=== PATIENT | female | born 1960 | race Caucasian/White ===

== ENCOUNTER 2022-04-02 09:24 | Inpatient (IN) | payer BC ==
[2022-04-02] MEDS ORDERED: NITROGLYCERIN OINT 1 INCH/GM PACKET TOPICAL STA (09:43)
[2022-04-02] MEDS ORDERED: ASPIRIN 81 MG PO STA (09:43)
--- NOTE | 2022-04-02 09:51 | ED ---
General Adult HPI - General Chief complaint: Chest Pain Stated complaint: Chest Pain Time Seen by Provider: 04/02/22 09:25 Source: patient, RN notes reviewed, old records reviewed Mode of arrival: ambulatory Limitations: no limitations - History of Present Illness Initial comments: This is a 61-year-old female who presents to the emergency department co mplaining of chest pain. Patient states started a 1 week ago and the pain is now radiating to her jaw. Patient states anytime she exerts himself he gets the pain with radiation. Patient states as soon she rests the pain subsides over 5- 10 minutes. Patient states she is not short of breath but she did have a diaphoretic episode earlier today. Patient states she is a smoker for 50 years she has a positive family history of heart disease and she does have high cholesterol. Patient denies any lightheadedness or dizziness. Patient denies any headache. Patient denies numbness or weakness. Patient denies any abdominal pain patient denies nausea vomiting diarrhea. - Related Data Home Medications Medication Instructions Recorded Confirmed Esomeprazole Magnesium [NexIUM 20 mg PO DAILY PRN 04/02/22 04/02/22 24Hr] Multivitamins, Thera [Multivitamin 1 tab PO DAILY 04/02/22 04/02/22 (formulary)] Vit C/E/Zn/Coppr/Lutein/Zeaxan 1 cap PO DAILY 04/02/22 04/02/22 [Preservision Areds 2 Softgel] Allergies Allergy/AdvReac Type Severity Reaction Status Date / Time codeine AdvReac Swelling Verified 04/02/22 10:12 Pork/Porcine Containing AdvReac Unknown Verified 04/02/22 10:14 Products [Pork] Review of Systems ROS Statement: Those systems with pertinent positive or pertinent negative responses have been documented in the HPI. ROS Other: All systems not noted in ROS Statement are negative. Past Medical History Past Medical History: Hyperlipidemia Past Surgical History: Hysterectomy Smoking Status: Current every day smoker Past Alcohol Use History: None Reported Past Drug Use History: None Reported General Exam - General Exam Comments Initial Comments: GENERAL: Patient is well-developed and well-nourished. Patient is nontoxic and well- hydrated and is in mild distress. ENT: Neck is soft and supple. No significant lymphadenopathy is noted. Oropharynx is clear. Moist mucous membranes. Neck has full range of motion without eliciting any pain. EYES: The sclera were anicteric and conjunctiva were pink and moist. Extraocular movements were intact and pupils were equal round and reactive to light. Eyelids were unremarkable. PULMONARY: Unlabored respirations. Good breath sounds bilaterally. No audible rales rhonchi or wheezing was noted. CARDIOVASCULAR: There is a regular rate and rhythm without any murmurs gallops or rubs. ABDOMEN: Soft and nontender with normal bowel sounds. SKIN: Skin is clear with no lesions or rashes and otherwise unremarkable. NEUROLOGIC: Patient is alert and oriented x3. Cranial nerves II through XII are grossly intact. Motor and sensory are also intact. Normal speech, volume and content. Symmetrical smile. MUSCULOSKELETAL: Normal extremities with adequate strength and full range of motion. LYMPHATICS: No significant lymphadenopathy is noted PSYCHIATRIC: Normal psychiatric evaluation. Limitations: no limitations Course Vital Signs 04/02/22 04/02/22 09:24 10:15 Temperature 97.9 F Pulse Rate 85 79 Respiratory 18 16 Rate Blood Pressure 148/81 140/70 O2 Sat by Pulse 87 L 98 Oximetry Medical Decision Making - Medical Decision Making EKG shows sinus rhythm at 74 bpm WI interval 143 QRS is 86 QT interval 362 QTC is 389 patient's EKG shows no ST segment elevation there is some slight depress ion in the inferior leads II, III, and F aVF. There is also some very slight depression in leads V5 and V6 Patient's chest x-ray shows no acute abnormality. I spoke with some physicians agreed to admit the patient admitted the patient wrote admitting orders - Lab Data Result diagrams: 04/02/22 09:56 04/02/22 09:56 Lab Results 04/02/22 04/02/22 04/02/22 Range/Units 09:56 09:56 09:56 WBC 6.6 (3.8-10.6) k/uL RBC 4.58 (3.80-5.40) m/uL Hgb 15.0 (11.4-16.0) gm/dL Hct 43.9 (34.0-46.0) % MCV 95.8 (80.0-100.0) fL MCH 32.7 (25.0-35.0) pg MCHC 34.1 (31.0-37.0) g/dL RDW 12.5 (11.5-15.5) % Plt Count 268 (150-450) k/uL MPV 8.1 Neutrophils % 57 % Lymphocytes % 33 % Monocytes % 5 % Eosinophils % 1 % Basophils % 0 % Neutrophils # 3.8 (1.3-7.7) k/uL Lymphocytes # 2.2 (1.0-4.8) k/uL Monocytes # 0.3 (0-1.0) k/uL Eosinophils # 0.1 (0-0.7) k/uL Basophils # 0.0 (0-0.2) k/uL PT 9.9 (9.0-12.0) sec INR 0.9 (<1.2) APTT 23.9 (22.0-30.0) sec Sodium 137 (137-145) mmol/L Potassium 4.0 (3.5-5.1) mmol/L Chloride 104 (98-107) mmol/L Carbon Dioxide 26 (22-30) mmol/L Anion Gap 7 mmol/L BUN 10 (7-17) mg/dL Creatinine 0.61 (0.52-1.04) mg/dL Est GFR (CKD-EPI)AfAm >90 (>60 ml/min/1.73 sqM) Est GFR (CKD-EPI)NonAf >90 (>60 ml/min/1.73 sqM) Glucose 107 H (74-99) mg/dL Calcium 9.9 (8.4-10.2) mg/dL Magnesium 1.9 (1.6-2.3) mg/dL Total Bilirubin 0.4 (0.2-1.3) mg/dL AST 25 (14-36) U/L ALT 19 (4-34) U/L Alkaline Phosphatase 77 (38-126) U/L Troponin I (0.000-0.034) ng/mL Total Protein 7.7 (6.3-8.2) g/dL Albumin 4.7 (3.5-5.0) g/dL 04/02/22 Range/Units 09:56 WBC (3.8-10.6) k/uL RBC (3.80-5.40) m/uL Hgb (11.4-16.0) gm/dL Hct (34.0-46.0) % MCV (80.0-100.0) fL MCH (25.0-35.0) pg MCHC (31.0-37.0) g/dL RDW (11.5-15.5) % Plt Count (150-450) k/uL MPV Neutrophils % % Lymphocytes % % Monocytes % % Eosinophils % % Basophils % % Neutrophils # (1.3-7.7) k/uL Lymphocytes # (1.0-4.8) k/uL Monocytes # (0-1.0) k/uL Eosinophils # (0-0.7) k/uL Basophils # (0-0.2) k/uL PT (9.0-12.0) sec INR (<1.2) APTT (22.0-30.0) sec Sodium (137-145) mmol/L Potassium (3.5-5.1) mmol/L Chloride (98-107) mmol/L Carbon Dioxide (22-30) mmol/L Anion Gap mmol/L BUN (7-17) mg/dL Creatinine (0.52-1.04) mg/dL Est GFR (CKD-EPI)AfAm (>60 ml/min/1.73 sqM) Est GFR (CKD-EPI)NonAf (>60 ml/min/1.73 sqM) Glucose (74-99) mg/dL Calcium (8.4-10.2) mg/dL Magnesium (1.6-2.3) mg/dL Total Bilirubin (0.2-1.3) mg/dL AST (14-36) U/L ALT (4-34) U/L Alkaline Phosphatase (38-126) U/L Troponin I 0.013 (0.000-0.034) ng/mL Total Protein (6.3-8.2) g/dL Albumin (3.5-5.0) g/dL Disposition Clinical Impression: Chest pain Disposition: ADMITTED IP TO THIS [facility] Referrals: None,Stated [Primary Care Provider] - 1-2 days Time of Disposition: 11:02
[2022-04-02 10:14] LABS: Basophils % (A) 0 %; Eosinophils # (A) 0.1 k/uL (0-0.7); Eosinophils % (A) 1 %; HCT 43.9 % (34.0-46.0); Lymphocytes # (A) 2.2 k/uL (1.0-4.8); Lymphocytes % (A) 33 %; MCH 32.7 pg (25.0-35.0); MCHC 34.1 g/dL (31.0-37.0); MCV 95.8 fL (80.0-100.0); Mean Platelet Volume 8.1; Monocytes # (A) 0.3 k/uL (0-1.0); Monocytes % (A) 5 %; Neutrophils # (A) 3.8 k/uL (1.3-7.7); Neutrophils % (A) 57 %; Platelet Count 268 k/uL (150-450); RBC 4.58 m/uL (3.80-5.40); RDW 12.5 % (11.5-15.5); WBC 6.6 k/uL (3.8-10.6)
[2022-04-02 10:38] LABS: INR 0.9 (<1.2); Partial Thromboplastin Time 23.9 sec (22.0-30.0); Prothrombin Time 9.9 sec (9.0-12.0)
--- NOTE | 2022-04-02 10:45 | XR ---
EXAMINATION TYPE: XR chest 2V DATE OF EXAM: 04/02/2022 COMPARISON: NONE HISTORY: Chest pain TECHNIQUE: Frontal and lateral views of the chest are obtained. FINDINGS: There is no focal air space opacity, pleural effusion, or pneumothorax seen. The cardiac silhouette size is within normal limits. There are overlying leads. The aorta is dense. The osseous structures are intact. IMPRESSION: No acute cardiopulmonary process.
[2022-04-02 10:46] LABS: ALT 19 U/L (4-34); AST 25 U/L (14-36); African American GFR (CKD) >90 (>60 ml/min/1.73 sqM); Albumin 4.7 g/dL (3.5-5.0); Alkaline Phosphatase 77 U/L (38-126); Anion Gap 7 mmol/L; Blood Urea Nitrogen 10 mg/dL (7-17); Calcium 9.9 mg/dL (8.4-10.2); Carbon Dioxide 26 mmol/L (22-30); Chloride 104 mmol/L (98-107); Glucose 107 mg/dL (74-99); Magnesium 1.9 mg/dL (1.6-2.3); Non-African American GFR(CKD) >90 (>60 ml/min/1.73 sqM); Sodium 137 mmol/L (137-145); Total Bilirubin 0.4 mg/dL (0.2-1.3); Total Protein 7.7 g/dL (6.3-8.2)
[2022-04-02] MEDS ORDERED: NITROGLYCERIN SL TABS 0.4 MG TAB SUBLINGUAL PRN ×4 (11:03→19:21)
[2022-04-02] MEDS ORDERED: ACETAMINOPHEN TAB 500 MG TAB PO STA (11:33)
[2022-04-02] MEDS: NITROGLYCERIN OINT 1 INCH/GM PACKET TOPICAL SCH ×2 (11:38→17:07)
[2022-04-02] MEDS ORDERED: PANTOPRAZOLE 40 MG TABLET PO PRN (12:56)
[2022-04-02] MEDS ORDERED: NALOXONE 0.4 MG/ML 1 ML VIAL IV PRN (12:56)
--- NOTE | 2022-04-02 13:03 | P.HPIM ---
History of Present Illness H&P Date: 04/02/22 Chief Complaint: chest pain 61-year-old female who presents to the emergency department complaining of chest pain. Patient states started a 1 week ago and the pain is now radiating to her jaw. Patient states anytime she exerts herself she gets the pain. It goes away with rest. This am it was 8/10 in severity and now it is about 2/10. Patient states she is not short of breath but she did feel diaphoretic earlier today. Patient states she is a smoker for 50 years of 1 PPD she has a positive family history of CAD. Mother had bypass in her 50s and father had it in his 60s. She has hx of high cholesterol and did not tolerate statins in the past, states it causes her to have low BP. No lightheadedness or dizziness. No abdominal pain, nausea vomiting diarrhea. Trops and EKG in the ER were both negative for AMI, she was admitted for further evaluation by cardiology. Past Medical History Past Medical History: Hyperlipidemia Past Surgical History: Hysterectomy Smoking Status: Current every day smoker Past Alcohol Use History: None Reported Past Drug Use History: None Reported Medications and Allergies Home Medications Medication Instructions Recorded Confirmed Type Esomeprazole Magnesium [NexIUM 20 mg PO DAILY PRN 04/02/22 04/02/22 History 24Hr] Multivitamins, Thera [Multivitamin 1 tab PO DAILY 04/02/22 04/02/22 History (formulary)] Vit C/E/Zn/Coppr/Lutein/Zeaxan 1 cap PO DAILY 04/02/22 04/02/22 History [Preservision Areds 2 Softgel] Allergies Allergy/AdvReac Type Severity Reaction Status Date / Time codeine AdvReac Swelling Verified 04/02/22 10:12 Pork/Porcine Containing AdvReac Unknown Verified 04/02/22 10:14 Products [Pork] Physical Exam Vitals: Vital Signs Temp Pulse Resp BP Pulse Ox 04/02/22 12:04 81 16 134/80 94 L 04/02/22 10:15 79 16 140/70 98 04/02/22 09:24 97.9 F 85 18 148/81 87 L Intake and Output 04/01/22 04/02/22 04/02/22 22:59 06:59 14:59 Other: Weight 63.503 kg Constitutional: No acute distress, conversant, pleasant Eyes:Anicteric sclerae, moist conjunctiva, no lid-lag, PERRLA, ENMT: Oropharynx clear, no erythema, exudates Neck: Supple, FROM, no masses, or JVD, No carotid bruits, No thyromegaly Lungs: Clear to auscultation, Clear to percussion, Normal respiratory effort, no accessory muscle use Cardiovascular: Heart regular in rate and rhythm, No murmurs, gallops, or rubs, No peripheral edema Abdominal: Soft, Nontender, no guarding, rebound or rigidity, Normoactive bowel sounds, No hepatomegaly, No splenomegaly, No palpable mass Skin: Normal temperature, tone, texture, turgor, no induration, No subcutaneous nodules, No rash, lesions, No ulcers Extremities: No digital cyanosis, No clubbing, Pedal pulses intact and symmetrical, Radial pulses intact and symmetrical, No calf tenderness Psychiatric: Alert and oriented to person, place and time, appropriate affect, intact judgement Neuro: Muscles Strength 5/5 in all 4 extremities, Sensation to light touch grossly present throughout, Cranial nerves II-XII grossly intact, no focal s ensory deficits Results CBC & Chem 7: 04/02/22 09:56 04/02/22 09:56 Labs: Abnormal Lab Results - Last 24 Hours (Table) 04/02/22 Range/Units 09:56 Glucose 107 H (74-99) mg/dL Assessment and Plan Plan: Acute chest pain Rule out coronary artery disease Telemetry Cardiology consult Cycle troponins Hyperlipidemia Check lipid panel Admit to observation
[2022-04-02] MEDS ORDERED: ALPRAZolam 0.25 MG TAB PO PRN (15:11)
[2022-04-02] MEDS ORDERED: ASPIRIN 325 MG TAB PO STA (15:11)
[2022-04-02] MEDS ORDERED: ATORVASTATIN 80 MG TAB PO STA (15:11)
[2022-04-02] MEDS ORDERED: ALPRAZolam 0.5 MG TAB PO PRN (15:11)
--- NOTE | 2022-04-02 15:18 | P.CRDCN ---
History of Present Illness Consult date: 04/02/22 History of present illness: HISTORY OF PRESENT ILLNESS: This is a 61-year-old female with a past medical history significant for hyperlipidemia (not taking statin secondary to causing hypotension per patient) and nicotine dependence. Patient does not follow with a kit assembler. We have been asked to see the patient in consultation for chest pain. Patient examined at the bedside. Patient states over the past few months she has been having dis comfort in between her shoulder blades. She states she did not think much of this until the past week when she began having chest pain and jaw pain. She states the pain would come with exertion. She states this morning she was getting ready for work when she began having severe chest pain that radiated up to her jaw. She reports feeling diaphoretic and short of breath. She states she called in to work and had her daughter bring her to the hospital for further evaluation. At the time of my examination, the patient denies having any chest pain or pressure. She does report a family history of premature coronary artery disease and states both her mother and her father had heart attacks in their 50s. * EKG reveals sinus mechanism with ST depression inferiorly. Patient also has mild ST depression in V4V6. * Chest xray negative for acute process * Laboratory data: WBC 6.6. Hemoglobin 15.0. Platelet count 268. Sodium 137. Potassium 4.0. BUN 10. Creatinine 0.61. Troponin 0.013. 0.066. * Current home cardiac medications include none REVIEW OF SYSTEMS: At the time of my exam: CONSTITUTIONAL: Denies fever or chills. HEENT: Denies blurred vision, vision changes, or eye pain. Denies hemoptysis CARDIOVASCULAR: Denies chest pain. Denies orthopnea. Denies PND. Denies palpitations RESPIRATORY: Denies shortness of breath. GASTROINTESTINAL: Denies abdominal pain. Denies nausea or vomiting. HEMATOLOGIC: Denies bleeding disorders. GENITOURINARY: Denies any blood in urine. SKIN: Denies pruitis. Denies rash. PHYSICAL EXAM: VITAL SIGNS: Reviewed. GENERAL: Well-developed in no acute distress. HEENT: Head is normocephalic. Pupils are equal, round. Sclerae anicteric. Mucous membranes of the mouth are moist. Neck supple. No JVD or thyromegaly LUNGS: Respirations even and unlabored. Lungs essentially clear to auscultation bilaterally. HEART: Regular rate and rhythm. S1 and S2 heard. ABDOMEN: Soft. Nondistended. Nontender. EXTREMITIES: Normal range of motion. No clubbing or cyanosis. Peripheral pulses intact. No lower extremity edema NEUROLOGIC: Awake and alert. Oriented x 3. ASSESSMENT: Non-STEMI Hyperlipidemia, intolerant to statins in the past, causing hypotension Nicotine dependence Family history of premature coronary artery disease PLAN: Obtain 2D echo to assess cardiac structure and function Begin aspirin 81 mg daily and metoprolol 25 mg twice a day Patient reports having hypotension in the past with statin therapy. Patient is willing to attempt statin therapy again. Will begin atorvastatin 80 mg at at bedtime. If hypotension develops, will adjust medications Patient undergo cardiac catheterization this afternoon with Dr. Nicole No IV heparin at this time as patient has a pork ALLERGY. Will hold off on therapeutic Lovenox as this should be held 12 hours prior to cardiac catheterization. Further recommendations pending patient's course Nurse practitioner note has been reviewed by physician. Signing provider agrees with the documented findings, assessment, and plan of care. Past Medical History Past Medical History: Hyperlipidemia Past Surgical History: Hysterectomy Smoking Status: Current every day smoker Past Alcohol Use History: None Reported Past Drug Use History: None Reported Medications and Allergies Home Medications Medication Instructions Recorded Confirmed Type Esomeprazole Magnesium [NexIUM 20 mg PO DAILY PRN 04/02/22 04/02/22 History 24Hr] Multivitamins, Thera [Multivitamin 1 tab PO DAILY 04/02/22 04/02/22 History (formulary)] Vit C/E/Zn/Coppr/Lutein/Zeaxan 1 cap PO DAILY 04/02/22 04/02/22 History [Preservision Areds 2 Softgel] Allergies Allergy/AdvReac Type Severity Reaction Status Date / Time codeine AdvReac Mild Swelling Verified 04/02/22 14:36 Pork/Porcine Containing AdvReac Swelling Verified 04/02/22 14:36 Products [Pork] Physical Exam Vitals: Vital Signs Temp Pulse Resp BP Pulse Ox 04/02/22 14:25 80 16 118/69 95 04/02/22 13:54 67 15 124/67 100 04/02/22 12:04 81 16 134/80 94 L 04/02/22 10:15 79 16 140/70 98 04/02/22 09:24 97.9 F 85 18 148/81 87 L Intake and Output 04/02/22 04/02/22 04/02/22 06:59 14:59 22:59 Other: Weight 63.503 kg Results 04/02/22 09:56 04/02/22 09:56 Cardiac Enzymes 04/02/22 04/02/22 04/02/22 Range/Units 09:56 09:56 12:51 AST 25 (14-36) U/L Troponin I 0.013 0.066 H* (0.000-0.034) ng/mL Coagulation 04/02/22 Range/Units 09:56 PT 9.9 (9.0-12.0) sec APTT 23.9 (22.0-30.0) sec CBC 04/02/22 Range/Units 09:56 WBC 6.6 (3.8-10.6) k/uL RBC 4.58 (3.80-5.40) m/uL Hgb 15.0 (11.4-16.0) gm/dL Hct 43.9 (34.0-46.0) % Plt Count 268 (150-450) k/uL Comprehensive Metabolic Panel 04/02/22 Range/Units 09:56 Sodium 137 (137-145) mmol/L Potassium 4.0 (3.5-5.1) mmol/L Chloride 104 (98-107) mmol/L Carbon Dioxide 26 (22-30) mmol/L BUN 10 (7-17) mg/dL Creatinine 0.61 (0.52-1.04) mg/dL Glucose 107 H (74-99) mg/dL Calcium 9.9 (8.4-10.2) mg/dL AST 25 (14-36) U/L ALT 19 (4-34) U/L Alkaline Phosphatase 77 (38-126) U/L Total Protein 7.7 (6.3-8.2) g/dL Albumin 4.7 (3.5-5.0) g/dL Current Medications Generic Name Dose Route Start Last Admin Trade Name Freq PRN Reason Stop Dose Admin Aspirin 325 mg 04/03/22 09:00 Aspirin 325 Mg Tab PO DAILY [facility] Multivitamins 1 each 04/03/22 09:00 Multivitamins, Thera 1 Each Tab PO DAILY GINNA Naloxone HCl 0.2 mg 04/02/22 12:56 Naloxone 0.4 Mg/Ml 1 Ml Vial IV Q2M PRN Opioid Reversal Nitroglycerin 0.4 mg 04/02/22 11:03 Nitroglycerin Sl Tabs 0.4 Mg Tab SUBLINGUAL Q5M PRN Chest Pain Nitroglycerin 1 inch 04/02/22 12:00 04/02/22 11:38 Nitroglycerin Oint 1 Inch/Gm Packet TOPICAL Not Given Q6HR GINNA Pantoprazole Sodium 40 mg 04/02/22 12:56 Pantoprazole 40 Mg Tablet PO DAILY PRN Heartburn Intake and Output 04/02/22 04/02/22 04/02/22 06:59 14:59 22:59 Other: Weight 63.503 kg Patient Weight 04/03/22 06:59 Weight 63.503 kg 04/02/22 09:56 04/02/22 09:56
[2022-04-02] MEDS: SODIUM CHLORIDE 0.9% 1,000 ML in EMPTY BAG 1 BAG IV SCH (15:40)
[2022-04-02] MEDS ORDERED: SODIUM CITRATE 250 ML MISCELLANE STA (17:22)
[2022-04-02] MEDS ORDERED: IV FLUID CONTINUATION 1,000 ML IV ONE (17:42)
[2022-04-02] MEDS ORDERED: MIDAZOLAM 2 MG/2 ML VIAL IV ONE ×2 (17:46→17:54)
[2022-04-02] MEDS ORDERED: HEPARIN SODIUM 1,000 UN/ML (10ML VL) ONE (17:47)
[2022-04-02] MEDS ORDERED: LIDOCAINE 1% INJ 10MG/ML (20 ML MDV) SQ ONE (17:48)
[2022-04-02] MEDS ORDERED: VERAPAMIL 2.5 MG/ML 2 ML AMP ONE (17:48)
[2022-04-02] MEDS ORDERED: VERAPAMIL SYRINGE (5 MG/10 ML) INTRAARTER ONE (17:49)
[2022-04-02] MEDS ORDERED: BIVALIRUDIN 250 MG in SODIUM CHLORIDE 0.9% 50 ML IV ONE ×4 (17:55)
[2022-04-02] MEDS ORDERED: BIVALIRUDIN BOLUS 250 MG/50 ML IV ONE ×2 (18:10→18:15)
[2022-04-02] MEDS ORDERED: PRASUGREL 10 MG TAB ONE ×2 (18:11)
[2022-04-02] MEDS ORDERED: PRASUGREL 10 MG TAB PO ONE (18:23)
[2022-04-02] MEDS ORDERED: IOPAMIDOL-370 125ML BTL INJ ONE (18:54)
[2022-04-02] MEDS ORDERED: AMIODARONE 50 MG/ML 3 ML VIAL IV ONE (19:11)
[2022-04-02] MEDS ORDERED: DEXTROSE 5% IN WATER 100 ML BAG IV ONE (19:11)
[2022-04-02] MEDS ORDERED: IOPAMIDOL-370 100ML BTL INJ ONE (19:14)
[2022-04-02] MEDS ORDERED: ATROPINE SULFATE 0.1 MG/ML 10ML SYRINGE IV PRN (19:21)
[2022-04-02] MEDS ORDERED: RX INFO: IV CONTRAST WAS GIVEN 1 EACH MISC MISCELLANE PRN (19:21)
[2022-04-02] MEDS ORDERED: ZOLPIDEM 5 MG TAB PO PRN (19:21)
[2022-04-02] MEDS ORDERED: MAG HYDROX/AL HYDROX/SIMETH 30 ML CUP PO PRN (19:21)
[2022-04-02] MEDS ORDERED: SODIUM CHLORIDE 0.9% 1,000 ML in EMPTY BAG 1 BAG IV SCH (19:30)
--- NOTE | 2022-04-02 19:32 | P.PCN ---
Date of Procedure: 04/02/22 Operative Findings: CARDIAC CATHETERIZATION AND PERCUTANEOUS CORONARY INTERVENTION PERFORMING PHYSICIAN: Suhail Nicole MD, RPVI PROCEDURE PERFORMED: 1. Selective right and left coronary angiogram 2. Left heart catheterization 3. Successful stenting of distal and mid RCA using 2.5 x 38 mm and 3.5 x 38 mm Xience LEAH which with an excellent angiographic results 4. Successful stenting of the second obtuse marginal branch using 2.5 x 38 mm Xience LEAH with an excellent angiographic results 5. Intravascular ultrasound of the right coronary artery 6. Selective right common femoral artery in March INDICATION: This is a 61-year-old female patient who presented to the hospital with a chest discomfort and ruled in for acute coronary syndrome. COMPLICATION: Cardiac arrest was polymorphic VT. APPROACH: Right radial artery and right common femoral artery LEVEL OF SEDATION: Moderate with the sedation time off 85 minutes PROCEDURE DESCRIPTION: After obtaining an informed consent the patient was brought to the cardiac parking lot laborer. The right radial artery was cannulated using micropuncture technique, the micropuncture wire passed easily then I placed a 6-Norwegian sheath. I gave the patient 2 mg of verapamil intra-arterial. Selective right and left coronary angiogram performed using JR4 and JL 3.5 catheters. Left heart catheterization was performed using the JR4 catheter which cross aortic valve then I did pulled back across the valve. Attempting advancing guiding catheter to do PCI of the RCA from right radial was unsuccessful because of severe spasm and pain in the right elbow and for that reason we aborted the right radial approach and we went from the right groin. After accessing the right common femoral artery I did intervene on the RCA and LCx. SELECTIVE CORONARY ANGIOGRAM: The right coronary artery: Is a large caliber vessel and a dominant vessel. The RCA is diffusely diseased up to about 90-95% in the proximal and mid and distal portions. Distally bifurcates into PDA and PLV branches. Left main: Has mild disease in the ostium appears to be in the range of 20% only. The left circumflex: Is a large caliber vessel nondominant vessel. The proximal left circumflex a ppeared to have mild disease only and gives rises into a large OM branch which work as a ramus intermedius and appeared to be angiographically normal. Second OM is a large caliber vessel with diffuse disease up to about 100% in the midportion. The left anterior descending artery: Is a large caliber vessel. The LAD has mild disease in the proximal and midportion. Gives rise into a large diagonal branch which has mild disease only. HEMODYNAMICS: The LVEDP was about 5-10 mmHg with mild gradient across aortic valve PCI OF THE RCA and LCx: Anticoagulation was initiated using Angiomax. The patient is ALLERGIC to heparin. Using JR4 guiding catheter the RCA was engaged. I did wire it using a whisper wire. Balloon angioplasty was performed using 2.5 x 20 mm balloon. After that and in the distal RCA deployed 2.5 x 38 mm stent and in the mid RCA deployed 3.5 x 38 mm stents. The stent were overlapped about one to 2 mm. After that the following angiogram showed good angiographic results but the area of overlap was a bit concerning and for that reason I did intravascular ultrasound which showed good opposition of the stent. No concerning areas seen. Re: The left circumflex intervention I did engage the left main using JL 4 guiding catheter. Wiring the left circumflex/OM 2 was performed using a whisper wire. Attempting doing balloon angioplasty using 2.0 mm balloon and subsequently 1.5 mm balloon was unsuccessful. Finally I was able to advance 1 mm balloon were I did PTCA ballooning of the OM 2. After that I did PTCA below- knee using 2.0 mm balloon. Finally I was able to advance 2.5 x 38 mm stent where the stent was positioned again under fluoroscopy guidance and deployed under its nominal pressure. Please note that during the procedure and everything the patient was given intracoronary nitroglycerin she went into V. fib/polymorphic VT. We gave the patient a total of 3 shocks. She came back to normal sinus mechanism. I did engage the left main coronary artery again and final angiogram was performed to show adequate angiographic results and the procedure was completed without any c ommon CONCLUSION: #1 critical disease involving the RCA in the distal and midportion. I performed successful stenting of both the distal and midportion with an excellent angiographic results #2 critical disease involving OM 2 of the LCx. I did perform successful stenting of OM 2 with an excellent angiographic results #3 mild disease involving the left anterior descending artery #4 mild disease involving the left main coronary artery #5 normal left-sided filling pressure #6 ALLERGY to nitroglycerin intracoronary with multiple episodes of polymorphic VT/cardiac arrest. The patient associated with shock. POSTPROCEDURE MANAGEMENT: #1 dual antiplatelet therapy using Effient and aspirin for at least 12 months #2 aggressive cholesterol control #3 follow-up with the patient
[2022-04-02 20:25] LABS: Glucose,Whole Blood 131 mg/dL (70-110)
[2022-04-02] MEDS: ATORVASTATIN 80 MG TAB PO SCH (23:37)
[2022-04-03] MEDS ORDERED: NITROGLYCERIN OINT 1 INCH/GM PACKET TOPICAL SCH
[2022-04-03] MEDS: METOPROLOL TARTRATE 25 MG TAB PO SCH ×3 (00:25→20:55)
[2022-04-03] MEDS: SODIUM CHLORIDE 0.9% 1,000 ML in EMPTY BAG 1 BAG IV SCH (00:26)
[2022-04-03] MEDS: PRASUGREL 10 MG TAB PO SCH (08:09)
[2022-04-03] MEDS: MULTIVITAMINS, THERA 1 EACH TAB PO SCH (08:10)
[2022-04-03] MEDS: ASPIRIN 81 MG PO SCH (08:10)
[2022-04-03 08:33] LABS: African American GFR (CKD) >90 (>60 ml/min/1.73 sqM); Non-African American GFR(CKD) >90 (>60 ml/min/1.73 sqM)
[2022-04-03] MEDS ORDERED: ASPIRIN 325 MG TAB PO SCH (09:00)
--- NOTE | 2022-04-03 09:43 | CA ---
Transthoracic Echo Report Name: Maci Dominguez Age: 61 Gender: F : 1960 Exam Date: 04/03/2022 08:14 Exam Location: [facility] Ht (in): 66 Wt (lb): 144 Ordering Physician: Mallorie Braun Attending/Referring Phys: [id number], Aparna Rhinologist Peace Walters, LUIS Procedure CPT: Indications: nstemi Cardiac Hx: Technical Quality: Fair Contrast 1: Total Dose (mL): Contrast 2: Total Dose (mL): MEASUREMENTS (Male / Female) Normal Values 2D ECHO LV Diastolic Diameter PLAX 3.3 cm 4.2 - 5.9 / 3.9 - 5.3 cm LV Systolic Diameter PLAX 2.3 cm IVS Diastolic Thickness 1.1 cm 0.6 - 1.0 / 0.6 - 0.9 cm LVPW Diastolic Thickness 1.0 cm 0.6 - 1.0 / 0.6 - 0.9 cm LV Relative Wall Thickness 0.6 RV Internal Dim ED PLAX 2.4 cm LA Systolic Diameter LX 2.4 cm 3.0 - 4.0 / 2.7 - 3.8 cm LA Volume 29.7 cm??? 18 - 58 / 22 - 52 cm??? M-MODE Aortic Root Diameter MM 2.8 cm MV E Point Septal Separation 0.5 cm AV Cusp Separation MM 1.9 cm DOPPLER AV Peak Velocity 173.3 cm/s AV Peak Gradient 12.0 mmHg MV Area PHT 2.6 cm??? Mitral E Point Velocity 106.2 cm/s Mitral A Point Velocity 118.2 cm/s Mitral E to A Ratio 0.9 MV Deceleration Time 292.7 ms MV E' Velocity 11.3 cm/s Mitral E to MV E' Ratio 9.4 FINDINGS Left Ventricle Left ventricular ejection fraction is estimated at 60-65 %. Left ventricular cavity size normal. Borderline left ventricular hypertrophy. Right Ventricle Normal right ventricular size and function, unable to estimate the right ventricular systolic pressure. Right Atrium Normal right atrial size. Left Atrium Normal left atrial size. No evidence for an atrial septal defect. Mitral Valve Mitral valve thickened. Mitral annular calcification. Aortic Valve Trileaflet aortic valve. No aortic valve stenosis or regurgitation. Tricuspid Valve Structurally normal tricuspid valve. No tricuspid stenosis, regurgitation or prolapse. Pulmonic Valve Pulmonic valve not well visualized. Pericardium Normal pericardium. No pericardial effusion. Aorta Normal size aortic root and proximal ascending aorta. CONCLUSIONS Normal LV size and systolic function Previewed by: Dr. Keron Barbosa MD (Electronically Signed) Final Date: 03 April 2022 09:43
[2022-04-03 11:28] LABS: Chol/HDL Ratio 8.36 Ratio; LDL Cholesterol,Calculated 231.5 mg/dL (0.0-131.0)
--- NOTE | 2022-04-03 12:33 | P.PN ---
Subjective Progress Note Date: 04/03/22 Principal diagnosis: chest pain Doing well. No further episodes of chest pain. Having only some left sided rib discomfort. No sob. No fevers. Objective - Vital Signs Vital signs: Vital Signs Temp 98.2 F 04/03/22 12:00 Pulse 84 04/03/22 12:00 Resp 16 04/03/22 12:00 BP 117/68 04/03/22 12:00 Pulse Ox 95 04/03/22 12:00 FiO2 21 04/03/22 07:16 Intake & Output 04/02/22 04/03/22 04/03/22 18:59 06:59 18:59 Intake Total 290 750 500 Output Total 550 0 Balance 290 200 500 Weight 63.503 kg 65.5 kg Intake: IV 290 750 150 Sodium Chloride 0.9% 1, 750 150 000 ml In Empty Bag 1 bag @ 75 mls/hr IV .[id number] [facility] Rx#:[id number] Oral 350 Output: Urine 550 0 Other: Voiding Method Bedpan Toilet # Voids 1 1 ABP, PAP, CO, CI - Last Documented Arterial Blood Pressure 145/62 - Exam Constitutional: No acute distress, conversant, pleasant Eyes:Anicteric sclerae, moist conjunctiva, no lid-lag, PERRLA, ENMT: Oropharynx clear, no erythema, exudates Neck: Supple, FROM, no masses, or JVD, No carotid bruits, No thyromegaly Lungs: Clear to auscultation, Clear to percussion, Normal respiratory effort, no accessory muscle use Cardiovascular: Heart regular in rate and rhythm, No murmurs, gallops, or rubs, No peripheral edema Abdominal: Soft, Nontender, no guarding, rebound or rigidity, Normoactive bowel sounds, No hepatomegaly, No splenomegaly, No palpable mass Skin: Normal temperature, tone, texture, turgor, no induration, No subcutaneous nodules, No rash, lesions, No ulcers Extremities: No digital cyanosis, No clubbing, Pedal pulses intact and symmetrical, Radial pulses intact and symmetrical, No calf tenderness Psychiatric: Alert and oriented to person, place and time, appropriate affect, intact judgement Neuro: Muscles Strength 5/5 in all 4 extremities, Sensation to light touch grossly present throughout, Cranial nerves II-XII grossly intact, no focal sensory deficits - Labs CBC & Chem 7: 04/02/22 09:56 04/03/22 07:44 Labs: Abnormal Lab Results - Last 24 Hours (Table) 04/02/22 04/02/22 04/02/22 Range/Units 12:51 16:17 20:24 Creatinine (0.52-1.04) mg/dL POC Glucose (mg/dL) 131 H (70-110) mg/dL Troponin I 0.066 H* 0.129 H* (0.000-0.034) ng/mL Triglycerides (0.00-149.00) mg/dL Cholesterol (0.00-200.00) mg/dL LDL Cholesterol, Calc (0.0-131.0) mg/dL VLDL Cholesterol, Calc (5.00-40.00) mg/dL HDL Cholesterol (40.00-60.00) mg/dL 04/03/22 04/03/22 Range/Units 07:44 07:44 Creatinine 0.47 L (0.52-1.04) mg/dL POC Glucose (mg/dL) (70-110) mg/dL Troponin I (0.000-0.034) ng/mL Triglycerides 229.00 H (0.00-149.00) mg/dL Cholesterol 315.00 H (0.00-200.00) mg/dL LDL Cholesterol, Calc 231.5 H (0.0-131.0) mg/dL VLDL Cholesterol, Calc 45.80 H (5.00-40.00) mg/dL HDL Cholesterol 37.70 L (40.00-60.00) mg/dL Assessment and Plan Plan: NSTEMI S/p cardiac cath on 04/02 with stent placement in the RCA and the obtuse marginal. Telemetry Cardiology following Started on ASA, metoprolol, prasugrel, statin. Hyperlipidemia Had previous reaction to statin, will reattempt. Smoking Counselled to quit. Anticipated dispo: Home Anticipitated discharge: 1-2 days.
[2022-04-03 13:41] VITALS: BMI 23.3
--- NOTE | 2022-04-03 14:52 | CDI ---
Documentation Clarification Form Date: 04/03/2022 12:27:20 PM From: Nida Khan RN CCDS Admit Date: 04/03/2022 07:23:00 AM Patient Name: Maci Dominguez Visit Number: [id number] Discharge Date: ATTENTION: The Clinical Documentation Specialists (CDI) and [facility] Coding Staff appreciate your assistance in clarifying documentation. Please respond to the clarification below the line at the bottom and electronically sign. The CDI & [facility] Coding staff will review the response and follow-up if needed. Please note: Queries are made part of the Legal Health Record. If you have any questions, please contact the author of this message via ITS. Dr. Suhail Nicole Cardiac arrest is documented 04/02, Procedure note and patient had Cardiac Catheterization and PTCA, 04/02. Additional clarification is requested regarding the relationship, if any, that exists between the diagnosis and the procedure. Patients Admitting Diagnosis: NON-STEMI Post-Operative Diagnosis: Critical disease involving the RCA in the distal and midportion. Critical disease involving OM 2 of the LCx. Mild disease involving the left anterior descending artery, mild disease involving the left main coronary artery, normal left -sided filing pressure. VT/cardiac arrest Procedure performed: Cardiac catheterization and Percutaneous coronary intervention. Stenting in the distal RCA and mid RCA. Stenting left circumflex/OM. History/Risk Factors: 61-year-old female presents to the ED with Chest pain and jaw pain, discomfort between her shoulder blades. Medical History: HLD, Hypotension and family has a history of premature coronary artery disease. 04/02, Cardiology consult Clinical Indicators: VSS: 04/02 B/P 148/81; HR 95; Temp 97.9 F Temporal; RR 18; SpO2 87% room air Troponin I 04/02: 0.013; 0.066; 0.129 04/02, Procedure Note: Please note that during the procedure and everything the patient was given intracoronary nitroglycerin she went into V.Fib/polymorphic VT. We gave the patient a total of three shocks. Treatment: 04/02 Total of three shocks What relationship, if any, exists between the diagnosis of cardiac arrest and the procedure: [ ] Cardiac arrest is a complication of surgical procedure [ ] Cardiac arrest is an expected outcome of the surgical procedure [ ] Cardiac arrest is related to patients co-morbid condition(s) of [insert co-morbid dxs] & not a complication of the procedure [ ] Other please specify ____ [ ] Unable to determine (Template Last Revised: December 2020) ROBBIED
--- NOTE | 2022-04-03 15:54 | P.PN ---
Subjective Progress Note Date: 04/03/22 Principal diagnosis: Acute coronary stent The patient is a pleasant 61-year-old female patient with a past medical history significant for hypertension and dyslipidemia who was admitted to the hospital with a chest discomfort and ruled in for acute coronary event. She underwent a heart catheterization and was found to have severe two-vessel CAD including the RCA and LCx and she underwent stenting of both. The echo showed normal left ventricular systolic function. She was seen this morning which is chest pain-free and hemodynamically stable. She is on dual antiplatelet therapy along with high intensity statin along with beta arlene. From the cardiovascular standpoint of view, we will continue the current medical regimen and follow-up with the patient. The patient can be transferred to the medical floor. Discharge in the next 24 hours Objective - Vital Signs Vital signs: Vital Signs Temp 98.2 F 04/03/22 12:00 Pulse 70 04/03/22 15:00 Resp 12 04/03/22 15:00 BP 110/53 04/03/22 15:00 Pulse Ox 95 04/03/22 15:00 FiO2 21 04/03/22 07:16 Intake & Output 04/02/22 04/03/22 04/03/22 18:59 06:59 18:59 Intake Total 290 750 850 Output Total 550 0 Balance 290 200 850 Weight 63.503 kg 65.5 kg 65.5 kg Intake: IV 290 750 150 Sodium Chloride 0.9% 1, 750 150 000 ml In Empty Bag 1 bag @ 75 mls/hr IV .[id number] [facility] Rx#:[id number] Oral 700 Output: Urine 550 0 Other: Voiding Method Bedpan Toilet # Voids 1 1 ABP, PAP, CO, CI - Last Documented Arterial Blood Pressure 145/62 - Constitutional General appearance: Present: no acute distress - Respiratory Respiratory: bilateral: CTA - Cardiovascular Rhythm: regular Heart sounds: normal: S1, S2 - Labs CBC & Chem 7: 04/02/22 09:56 04/03/22 07:44 Labs: Abnormal Lab Results - Last 24 Hours (Table) 04/02/22 04/02/22 04/03/22 Range/Units 16:17 20:24 07:44 Creatinine (0.52-1.04) mg/dL POC Glucose (mg/dL) 131 H (70-110) mg/dL Troponin I 0.129 H* (0.000-0.034) ng/mL Triglycerides 229.00 H (0.00-149.00) mg/dL Cholesterol 315.00 H (0.00-200.00) mg/dL LDL Cholesterol, Calc 231.5 H (0.0-131.0) mg/dL VLDL Cholesterol, Calc 45.80 H (5.00-40.00) mg/dL HDL Cholesterol 37.70 L (40.00-60.00) mg/dL 04/03/22 Range/Units 07:44 Creatinine 0.47 L (0.52-1.04) mg/dL POC Glucose (mg/dL) (70-110) mg/dL Troponin I (0.000-0.034) ng/mL Triglycerides (0.00-149.00) mg/dL Cholesterol (0.00-200.00) mg/dL LDL Cholesterol, Calc (0.0-131.0) mg/dL VLDL Cholesterol, Calc (5.00-40.00) mg/dL HDL Cholesterol (40.00-60.00) mg/dL Assessment and Plan Assessment: Assessment #1 acute coronary event #2 severe two-vessel CAD and status post PCI as described above #3 hypertension #4 dyslipidemia Plan #1 continue the current medical regimen #2 continue dual antiplatelet therapy along with high intensity statin #3 discharged in the next 24 hours
[2022-04-03] MEDS: ATORVASTATIN 80 MG TAB PO SCH (20:55)
[2022-04-04 10:08] LABS: Basophils % (A) 0 %; Eosinophils # (A) 0.1 k/uL (0-0.7); Eosinophils % (A) 1 %; HCT 41.5 % (34.0-46.0); HGB 13.4 gm/dL (11.4-16.0); Lymphocytes # (A) 2.6 k/uL (1.0-4.8); Lymphocytes % (A) 30 %; MCH 31.4 pg (25.0-35.0); MCHC 32.4 g/dL (31.0-37.0); MCV 97.2 fL (80.0-100.0); Mean Platelet Volume 8.3; Monocytes # (A) 0.6 k/uL (0-1.0); Monocytes % (A) 7 %; Neutrophils # (A) 5.2 k/uL (1.3-7.7); Neutrophils % (A) 60 %; Platelet Count 247 k/uL (150-450); RBC 4.27 m/uL (3.80-5.40); WBC 8.6 k/uL (3.8-10.6)
[2022-04-04] MEDS: PRASUGREL 10 MG TAB PO SCH (10:26)
[2022-04-04] MEDS: ASPIRIN 81 MG PO SCH (10:26)
[2022-04-04] MEDS: MULTIVITAMINS, THERA 1 EACH TAB PO SCH (10:27)
[2022-04-04] MEDS: METOPROLOL TARTRATE 25 MG TAB PO SCH (10:28)
[2022-04-04 10:39] LABS: African American GFR (CKD) >90 (>60 ml/min/1.73 sqM); Anion Gap 8 mmol/L; Blood Urea Nitrogen 12 mg/dL (7-17); Calcium 9.7 mg/dL (8.4-10.2); Carbon Dioxide 29 mmol/L (22-30); Chloride 103 mmol/L (98-107); Glucose 73 mg/dL (74-99); Non-African American GFR(CKD) >90 (>60 ml/min/1.73 sqM); Potassium 4.3 mmol/L (3.5-5.1); Sodium 140 mmol/L (137-145)
[2022-04-04 11:19] VITALS: RESP 16
--- NOTE | 2022-04-04 12:38 | P.PN ---
Subjective Progress Note Date: 04/04/22 HISTORY OF PRESENT ILLNESS: This is a 61-year-old female with a past medical history significant for hyperlipidemia (not taking statin secondary to causing hypotension per patient) and nicotine dependence. 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 We have been asked to see the patient in consultation for chest pain. Patient examined at the bedside. Patient states over the past few months she has been having discomfort in between her shoulder blades. She states she did not think much of this until the past week when she began having chest pain and jaw pain. She states the pain would come with exertion. She states this morning she was getting ready for work when she began having severe chest pain that radiated up to her jaw. She reports feeling diaphoretic and short of breath. She states she called in to work and had her daughter bring her to the hospital for further evaluation. At the time of my examination, the patient denies having any chest pain or pressure. She does report a family history of premature coronary artery disease and states both her mother and her father had heart attacks in their 50s. * EKG reveals sinus mechanism with ST depression inferiorly. Patient also has mild ST depression in V4V6. * Chest xray negative for acute process * Laboratory data: WBC 6.6. Hemoglobin 15.0. Platelet count 268. Sodium 137. Potassium 4.0. BUN 10. Creatinine 0.61. Troponin 0.013. 0.066. * Current home cardiac medications include none 04/04/2022 Patient examined this morning at the bedside. Patient is status post cardiac catheterization with stenting of distal and mid RCA and second obtuse marginal branch. Patient denies any chest pain or pressure. She denies any shortness of breath. No further episodes of ventricular tachycardia. Echocardiogram completed revealing preserved systolic function. PHYSICAL EXAM: VITAL SIGNS: Reviewed. GENERAL: Well-developed in no acute distress. HEENT: Head is normocephalic. Pupils are equal, round. Sclerae anicteric. Mucous membranes of the mouth are moist. Neck supple. No JVD or thyromegaly LUNGS: Respirations even and unlabored. Lungs essentially clear to auscultation bilaterally. HEART: Regular rate and rhythm. S1 and S2 heard. ABDOMEN: Soft. Nondistended. Nontender. EXTREMITIES: Normal range of motion. No clubbing or cyanosis. Peripheral p ulses intact. No lower extremity edema NEUROLOGIC: Awake and alert. Oriented x 3. ASSESSMENT: Non-STEMI, status post PCI to distal and mid RCA and second obtuse marginal branch Ventricular tachycardia, status post nitroglycerin administration, requiring 3 shocks Hyperlipidemia, intolerant to statins in the past, causing hypotension Nicotine dependence Family history of premature coronary artery disease PLAN: Continue current cardiac medications Continue dual antiplatelet therapy with Effient and aspirin No nitroglycerin secondary to ALLERGY causing ventricular tachycardia The patient may be discharged home today from a cardiac standpoint and follow up on an outpatient basis Nurse practitioner note has been reviewed by physician. Signing provider agrees with the documented findings, assessment, and plan of care. Objective - Vital Signs Vital signs: Vital Signs Temp 98.1 F 04/04/22 10:00 Pulse 75 04/04/22 10:00 Resp 16 04/04/22 10:00 BP 98/61 04/04/22 10:00 Pulse Ox 97 04/04/22 10:00 FiO2 21 04/03/22 07:16 Intake & Output 04/03/22 04/04/22 04/04/22 18:59 06:59 18:59 Intake Total 850 780 180 Output Total 0 Balance 850 780 180 Weight 65.5 kg Intake: IV 150 Sodium Chloride 0.9% 1, 150 000 ml In Empty Bag 1 bag @ 75 mls/hr IV .[id number] [facility] Rx#:[id number] Oral 700 780 180 Output: Urine 0 Other: Voiding Method Toilet Toilet Toilet # Voids 1 1 2 ABP, PAP, CO, CI - Last Documented Arterial Blood Pressure 145/62 - Labs CBC & Chem 7: 04/04/22 09:28 04/04/22 09:28 Labs: Abnormal Lab Results - Last 24 Hours (Table) 04/04/22 Range/Units 09:28 Glucose 73 L (74-99) mg/dL
--- NOTE | 2022-04-04 12:48 | P.DS ---
Providers Date of admission: 04/03/22 07:23 Expected date of discharge: 04/04/22 Attending physician: Ml Hodges MD Consults: 04/02/22 11:03 Consult Physician Urgent Consulting Provider: Shmuel Ramos Consult Reason/Comments: Chest pain Do you want consulting provider notified?: Yes 04/02/22 19:21 Consult Physician Routine Consulting Provider: Shmuel Ramos Consult Reason/Comments: Post Interventional Patient Do you want consulting provider notified?: Already Contacted Primary care physician: Stated None Hospital Course: 61-year-old female who presents to the emergency department complaining of chest pain. Patient states started a 1 week ago and the pain is now radiating to her jaw. Patient states anytime she exerts herself she gets the pain. It goes away with rest. This am it was 8/10 in severity and now it is about 2/10. Patient states she is not short of breath but she did feel diaphoretic earlier today. Patient states she is a smoker for 50 years of 1 PPD she has a positive family history of CAD. Mother had bypass in her 50s and father had it in his 60s. She has hx of high cholesterol and did not tolerate statins in the past, states it causes her to have low BP. No lightheadedness or dizziness. No abdominal pain, nausea vomiting diarrhea. Trops and EKG in the ER were both negative for AMI initially, she was admitted for further evaluation by cardiology. Troponins were cycled and they started to climb up. She continued to have chest pain as well. She could not be started on heparin due to pork allergy. She was seen by cardiology, taken to the [facility] and she was found to have right coronary artery and obtuse marginal stenoses, had a stent in each one. During the heart catheterization she had episodes of Ventricular tachycardia requiring 3 shocks. She was admitted to the ICU afterwards. She remained stable without any arrhythmias in the intensive care unit. She was later transferred to the medical floor and again remained stable with no recurrent chest pain. She was started on dual antiplatelet therapy per cardiology, in addition she was given metoprolol and started on statin as well. Currently she is stable for discharge, she was cleared by cardiology. She was discharged home in stable condition. Time for discharge 35 minutes Plan - Discharge Summary Discharge Rx Participant: No New Discharge Prescriptions: New Prasugrel [Effient] 10 mg PO DAILY #90 tab Aspirin 81 mg PO DAILY #90 tab Atorvastatin [Lipitor] 80 mg PO HS #90 tab Metoprolol Tartrate [Lopressor] 25 mg PO BID #180 tab Continue Esomeprazole Magnesium [NexIUM 24Hr] 20 mg PO DAILY PRN PRN Reason: Heartburn Vit C/E/Zn/Coppr/Lutein/Zeaxan [Preservision Areds 2 Softgel] 1 cap PO DAILY Multivitamins, Thera [Multivitamin (formulary)] 1 tab PO DAILY Discharge Medication List Esomeprazole Magnesium [NexIUM 24Hr] 20 mg PO DAILY PRN 04/02/22 [History] Multivitamins, Thera [Multivitamin (formulary)] 1 tab PO DAILY 04/02/22 [History] Vit C/E/Zn/Coppr/Lutein/Zeaxan [Preservision Areds 2 Softgel] 1 cap PO DAILY 04/02/22 [History] Aspirin 81 mg PO DAILY #90 tab 04/04/22 [Rx] Atorvastatin [Lipitor] 80 mg PO HS #90 tab 04/04/22 [Rx] Metoprolol Tartrate [Lopressor] 25 mg PO BID #180 tab 04/04/22 [Rx] Prasugrel [Effient] 10 mg PO DAILY #90 tab 04/04/22 [Rx] Follow up Appointment(s)/Referral(s): Suhail Nicole MD [STAFF PHYSICIAN] - 1 Week None,Stated [Primary Care Provider] - 1-2 days
[2022-04-04 13:45] VITALS: BP 105/67; PULSE 68; TEMP 98.7
--- NOTE | 2022-04-09 12:45 | CDI ---
Documentation Clarification Form Date: 04/03/2022 12:27:20 PM From: Nida Khan RN CCDS Admit Date: 04/03/2022 07:23:00 AM Patient Name: Maci Dominguez Visit Number: [id number] Discharge Date: ATTENTION: The Clinical Documentation Specialists (CDI) and [facility] Coding Staff appreciate your assistance in clarifying documentation. Please respond to the clarification below the line at the bottom and electronically sign. The CDI & [facility] Coding staff will review the response and follow-up if needed. Please note: Queries are made part of the Legal Health Record. If you have any questions, please contact the author of this message via ITS. Dr. Suhail Nicole Cardiac arrest is documented 04/02, Procedure note and patient had Cardiac Catheterization and PTCA, 04/02. Additional clarification is requested regarding the relationship, if any, that exists between the diagnosis and the procedure. Patients Admitting Diagnosis: NON-STEMI Post-Operative Diagnosis: Critical disease involving the RCA in the distal and midportion. Critical disease involving OM 2 of the LCx. Mild disease involving the left anterior descending artery, mild disease involving the left main coronary artery, normal left -sided filing pressure. VT/cardiac arrest Procedure performed: Cardiac catheterization and Percutaneous coronary intervention. Stenting in the distal RCA and mid RCA. Stenting left circumflex/OM. History/Risk Factors: 61-year-old female presents to the ED with Chest pain and jaw pain, discomfort between her shoulder blades. Medical History: HLD, Hypotension and family has a history of premature coronary artery disease. 04/02, Cardiology consult Clinical Indicators: VSS: 04/02 B/P 148/81; HR 95; Temp 97.9 F Temporal; RR 18; SpO2 87% room air Troponin I 04/02: 0.013; 0.066; 0.129 04/02, Procedure Note: Please note that during the procedure and everything the patient was given intracoronary nitroglycerin she went into V.Fib/polymorphic VT. We gave the patient a total of three shocks. Treatment: 04/02 Total of three shocks What relationship, if any, exists between the diagnosis of cardiac arrest and the procedure: [ ] Cardiac arrest is a complication of surgical procedure [ ] Cardiac arrest is an expected outcome of the surgical procedure [ ] Cardiac arrest is related to patients co-morbid condition(s) of [insert co-morbid dxs] & not a complication of the procedure [ ] Other please specify ____ [ ] Unable to determine (Template Last Revised: December 2020) ROBBIED
--- NOTE | 2022-04-26 07:32 | CDI ---
Documentation Clarification Form Date: 04/03/2022 12:27:00 PM From: Nida Khan RN, CCDS Admit Date: 04/03/2022 07:23:00 AM Patient Name: Maci Dominguez Visit Number: [id number] Discharge Date: 04/04/2022 04:08:00 PM ATTENTION: The Clinical Documentation Specialists (CDI) and [facility] Coding Staff appreciate your assistance in clarifying documentation. Please respond to the clarification below the line at the bottom and electronically sign. The CDI & [facility] Coding staff will review the response and follow-up if needed. Please note: Queries are made part of the Legal Health Record. If you have any questions, please contact the author of this message via ITS. Dr. Suhail Nicole: Thank you for signing this query, please document your response on the query form or in your documentation. Cardiac arrest is documented 04/02, Procedure note and patient had Cardiac Catheterization and PTCA, 04/02. Additional clarification is requested regarding the relationship, if any, that exists between the diagnosis and the procedure. Patients Admitting Diagnosis: NON-STEMI Post-Operative Diagnosis: Critical disease involving the RCA in the distal and midportion. Critical disease involving OM 2 of the LCx. Mild disease involving the left anterior descending artery, mild disease involving the left main coronary artery, normal left -sided filing pressure. VT/cardiac arrest Procedure performed: Cardiac catheterization and Percutaneous coronary intervention. Stenting in the distal RCA and mid RCA. Stenting left circumflex/OM. History/Risk Factors: 61-year-old female presents to the ED with Chest pain and jaw pain, discomfort between her shoulder blades. Medical History: HLD, Hypotension and family has a history of premature coronary artery disease. 04/02, Cardiology consult Clinical Indicators: VSS: 04/02 B/P 148/81; HR 95; Temp 97.9 F Temporal; RR 18; SpO2 87% room air Troponin I 04/02: 0.013; 0.066; 0.129 04/02, Procedure Note: Please note that during the procedure and everything the patient was given intracoronary nitroglycerin she went into V.Fib/polymorphic VT. We gave the patient a total of three shocks. Treatment: 04/02 Total of three shocks; 03/13 Intracoronary Nitroglycerin What relationship, if any, exists between the diagnosis of cardiac arrest and the procedure: [ ] Cardiac arrest is a complication of surgical procedure [ ] Cardiac arrest is an expected outcome of the surgical procedure [ ] Cardiac arrest is related to patients co-morbid condition(s) of [insert co-morbid dxs] & not a complication of the procedure [ ] Other please specify ____ [ ] Unable to determine MTDD
== END 2022-04-04 16:08 | disposition home or self-care (01) | DRG 246 ==
LOC: EC 09:24 → 6NMEDSUR 11:10 → 3SCARD 14:28 → 2SICU 20:07 → OBSVTOIN 04-03 07:23 → 3SCARD 04-03 20:30
PROVIDERS: ADMIT Internal Medicine; ATTEND Internal Medicine
PROC: B240ZZ3 Ultrasonography of Single Coronary Artery, Intravascular (ICD-10-PCS; 2022-04-02)
PROC: 027136Z Dilation of Coronary Artery, Two Arteries with Three Drug-eluting Intraluminal Devices, Percutaneous Approach (ICD-10-PCS; principal; 2022-04-02 17:00)
PROC: 4A023N7 Measurement of Cardiac Sampling and Pressure, Left Heart, Percutaneous Approach (ICD-10-PCS; 2022-04-02 17:00)
PROC: B211YZZ Fluoroscopy of Multiple Coronary Arteries using Other Contrast (ICD-10-PCS; 2022-04-02 17:00)
PROC: B215YZZ Fluoroscopy of Left Heart using Other Contrast (ICD-10-PCS; 2022-04-02 17:00)
DX: I21.4 Non-ST elevation (NSTEMI) myocardial infarction (principal); I46.9 Cardiac arrest, cause unspecified; I47.2 Ventricular tachycardia; I25.10 Atherosclerotic heart disease of native coronary artery without angina pectoris; E78.00 Pure hypercholesterolemia, unspecified; E78.5 Hyperlipidemia, unspecified; I10 Essential (primary) hypertension; F17.210 Nicotine dependence, cigarettes, uncomplicated; Z90.710 Acquired absence of both cervix and uterus; Z82.49 Family history of ischemic heart disease and other diseases of the circulatory system
CPT/HCPCS: 36415; 71046; 80048; 80053; 80061; 82565; 83735; 84100; 84484; 85025; 85610; 85730; 92978; 93005; 93306; 93458; 96360; 96361; 99285

== ENCOUNTER → 2022-08-22 | Outpatient (CLI) | payer BC ==
--- NOTE | 2022-08-22 16:25 | CT ---
EXAMINATION TYPE: CT angio neck CT DLP: 228.70 mGycm, Automated exposure control for dose reduction was used. DATE OF EXAM: 08/22/2022 4:04 PM COMPARISON: None. 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 TECHNIQUE: Axially acquired helical CT angiogram of the neck was obtained with contrast utilizing 70 cc of Isovue-370 administered intravenously. Axial images are supplemented with 3D reconstructions wh ich were post-processed at an independent workstation. NASCET criteria used. FINDINGS: CTA NECK: Right Carotid System: The common carotid artery and external carotid artery are patent. There is calcified and noncalcified plaque in the origin of the internal carotid artery with 50% stenosis. The remaining portions of the internal carotid artery demonstrate normal size without significant narrowing. Left Carotid System: The common carotid artery and external carotid artery are patent. There is calcified and noncalcified plaque in the origin of the internal carotid artery with 50% stenosis. The remaining portions of the internal carotid artery demonstrate normal size without significant narrowing. The right vertebral artery is patent without evidence hemodynamically significant stenosis. The left vertebral artery is patent but hypoplastic. The basilar artery is patent. origin of the right P CA. There is a three-vessel aortic arch. The origins of the great vessels are patent. Mild stenosis at th e origin of the left common carotid artery secondary to calcified and noncalcified plaque. Mild centrilobular and paraseptal emphysematous changes. IMPRESSION: 1. 50% stenosis of the bilateral internal carotid arteries secondary to calcified and noncalcified pl aque. 2. Mild stenosis at the origin of the left common carotid artery secondary to calcified and noncalcif ied plaque. 3. Hypoplastic but patent left vertebral artery. 4. Mild COPD changes.
== END | disposition home or self-care (01) ==
LOC: RADCTMAIN 15:11
PROVIDERS: ATTEND Internal Medicine Interventional Cardiology
DX: I65.8 Occlusion and stenosis of other precerebral arteries (principal); J44.9 Chronic obstructive pulmonary disease, unspecified; I65.23 Occlusion and stenosis of bilateral carotid arteries; I70.202 Unspecified atherosclerosis of native arteries of extremities, left leg
CPT/HCPCS: 70498; Q9967

== ENCOUNTER → 2025-02-08 | Outpatient (CLI) | payer MEDICARE ==
[2025-02-08 08:00] LABS: ALT 33 U/L (4-34); AST 30 U/L (14-36); African American GFR (CKD) >90 (>60 ml/min/1.73 sqM); Blood Urea Nitrogen 13 mg/dL (7-17); Non-African American GFR(CKD) >90 (>60 ml/min/1.73 sqM)
[2025-02-08 10:43] LABS: Chol/HDL Ratio 3.22 Ratio; LDL Cholesterol,Calculated 88.5 mg/dL (0.0-131.0)
--- NOTE | 2025-02-08 11:16 | CT ---
EXAMINATION TYPE: CT angio neck DATE OF EXAM: 02/08/2025 8:54 AM COMPARISON: None. CLINICAL INDICATION: Female, 64 years old with history of I65.139 OCCLUSION AND STENOSIS OF BASILAR A RTERY, suspected occlusion, TECHNIQUE: Axially acquired helical CT Angiogram of the Neck was obtained with and without contrast. Axial images are supplemented with coronal and sagittal MIP reconstructions. 3D reconstructions were also performed and were post-processed at an independent workstation. Estimated carotid stenosis was calculated using the NASCET criteria. IV CONTRAST: with IV Contrast, patient injected with 65ml mL of Isovue 370. (None if empty) CT DLP: 306.6 mGycm, Automated exposure control for dose reduction was used. FINDINGS: Right carotid system: Mild plaque is seen of the right common carotid artery. There is mild plaque a lso noted at the carotid bulb. Estimated diameter reduction is less than 50%. ECA is patent. Righ t vertebral artery appears unremarkable. Left carotid system: Mild plaque is seen of the left common carotid artery. There is mild plaque als o noted at the carotid bulb. Estimated diameter reduction is less than 50%. ECA is patent. Left ve rtebral artery appears unremarkable. Incidental right maxillary chronic sinusitis. IMPRESSION: 1. Estimated diameter reduction Right ICA less than 50% 2. Estimated diameter reduction Left ICA less than 50% [facility], , 02/08/2025 11:13 AM
== END | disposition home or self-care (01) ==
LOC: RADCTMAIN 07:07
PROVIDERS: ATTEND Internal Medicine Interventional Cardiology
DX: I65.1 Occlusion and stenosis of basilar artery (principal); E78.00 Pure hypercholesterolemia, unspecified; J32.8 Other chronic sinusitis
CPT/HCPCS: 80061; 82565; 84450; 84460; 84520; 70498; 36415; Q9967